=== PATIENT | female | born 1950 | race Caucasian/White ===

== ENCOUNTER → 2017-03-25 | Outpatient (CLI) | payer BC ==
[~2017-03-25] MED LIST: AMBIEN 10MG10 MG PO; ASPIRIN 81M81 MG/TA2 PO; BENICAR HCT 251 TAB PO; COSOPT 2%-0.5%10 ML OU; CRESTOR5 MG PO; GARLIC1000 MG PO; GOOD NEIGHBOR500 M6 PO; KLOR-CON 1010 MEQ PO; L-LYSINE500 M1 PO; LASIX 20MG TABL20 MG PO; LEXAPRO 10MG10 MG PO; LOPRESSOR100 MG PO; MOBIC 7.5MG7.5 MG PO; MULTIPLE VITAMI1 CAP PO; NATURAL E400 IU PO; NIACIN100 M1 PO; NORVASC 5MG5 MG/TAB PO; OMEGA 31000 MG PO; SYNTHROID0.125 MG/T PO; TRAVATAN Z 2.52.5 ML OU
== END ==
LOC: MC.RAD 08:40
DX: Z12.31 Encounter for screening mammogram for malignant neoplasm of breast (principal)

== ENCOUNTER → 2018-04-11 | Outpatient (CLI) | payer MEDICARE, BC | LOC: MC.RAD 09:36 | DX: Z12.31 Encounter for screening mammogram for malignant neoplasm of breast (principal); Z85.6 Personal history of leukemia ==

== ENCOUNTER → 2020-01-02 | Outpatient (CLI) | payer MEDICARE, BC | LOC: ZCOL.LAB 16:17 | DX: U07.1 COVID-19 (principal) ==

== ENCOUNTER → 2020-02-01 | Outpatient (CLI) | payer MEDICARE, BC | LOC: COL.RAD 09:35 | DX: Z01.812 Encounter for preprocedural laboratory examination (principal); R50.9 Fever, unspecified; Z85.6 Personal history of leukemia | CPT/HCPCS: Q9967 ==

== ENCOUNTER → 2020-02-07 | Emergency (ER) | payer MEDICARE, BC ==
[~2020-02-07] VITALS: Ht 167.6 cm; Wt 83.2 kg
[2020-02-07 15:11] VITALS: BP 109/58; PULSE 86; TEMP 98.2
[2020-02-07 16:01] LABS: MEAN CELL VOLUME 91 fl (80.0-100.0); MEAN CORPUSCULAR HGB CONC 31 g/dl (33.0-37.0); MEAN PLATELET VOLUME 11.7 fl (7.4-10.4); PLATELET COUNT 59 K/mm3 (130-400); RED BLOOD COUNT 2.77 M/mm3 (4.10-5.30); REDCELL DISTRIBUTION WIDTH-CV 15.9 % (11.5-14.5)
[2020-02-07 16:03] LABS: HEMATOCRIT 25.3 % (37.0-47.0); HEMOGLOBIN 7.9 g/dl (12.5-16.0); MEAN CORPUSCULAR HEMOGLOBIN 29 pg (27.0-31.0)
[2020-02-07 16:19] LABS: ALBUMIN 3.7 gm/dL (3.5-5.0); BILIRUBIN,TOTAL 0.8 mg/dL (0.0-1.0); CREATININE, serum 0.81 (0.52-1.25); POTASSIUM 4.3 mmol/L (3.4-5.0); TOTAL PROTEIN 6.9 gm/dL (6.4-8.2)
[2020-02-07 16:21] LABS: ERYTHROCYTE SEDIMENTATION RATE > 140 mm/hr (0-30)
[2020-02-07 16:26] LABS: BAND 2 % (0-10); LYMPHOCYTE 6 % (20.0-51.0); METAMYELOCYTE 1 % (0-0); MYELOCYTE 1 % (0-0); NEUTROPHILS 85 % (42.0-75.2)
[2020-02-07 16:27] LABS: ANISOCYTOSIS 2+; HYPOCHROMIA 3+; PLATELET ESTIMATE DECREASED (NORMAL)
[2020-02-07 16:32] LABS: C-REACTIVE PROTEIN 24.9 mg/dL (0.0-0.9)
== END ==
LOC: COL.ER 15:06
PROVIDERS: Family Medicine
DX: J18.9 Pneumonia, unspecified organism (principal); I10 Essential (primary) hypertension; Z79.890 Hormone replacement therapy; Z79.82 Long term (current) use of aspirin
CPT/HCPCS: J7120; Q9967

== ENCOUNTER 2020-02-08 14:08 | Outpatient (CLI) | payer MEDICARE, BC ==
[~2020-02-08] VITALS: Ht 167.6 cm; Wt 89.6 kg
[2020-02-08 14:15] VITALS: BP 121/62; PULSE 78; TEMP 97.2
[2020-02-08 16:30] VITALS: BP 122/79; PULSE 87; TEMP 97.4
[2020-02-08 16:45] VITALS: BP 120/60; PULSE 85; TEMP 97.2
[2020-02-08 17:00] VITALS: BP 124/70; PULSE 92; TEMP 97.2
[2020-02-08 17:15] VITALS: BP 125/73; PULSE 84; TEMP 97.2
[2020-02-08 17:45] VITALS: BP 128/65; PULSE 83; TEMP 97.2
== END 2020-02-08 18:20 | disposition home or self-care (01) ==
LOC: EUO 14:08
DX: C91.10 Chronic lymphocytic leukemia of B-cell type not having achieved remission (principal); D50.9 Iron deficiency anemia, unspecified
CPT/HCPCS: J7050; P9016

== ENCOUNTER 2020-03-05 13:15 | Outpatient (RCR) | payer MEDICARE, BC ==
[2020-03-05] VITALS (11 sets, daily range): BP systolic 96–113; BP diastolic 47–58; PULSE 66–75; TEMP 98.1–98.9
[2020-03-05] MEDS ORDERED: ULTRAM 50MG TAB50 MG PO ×2 (14:28)
[2020-03-05] MEDS ORDERED: CELEBREX 1100 MG/CAP PO (14:30)
== END 2020-03-05 17:58 | disposition home or self-care (01) ==
LOC: EUO 13:15
DX: C91.10 Chronic lymphocytic leukemia of B-cell type not having achieved remission (principal); D64.9 Anemia, unspecified
CPT/HCPCS: J7050; P9040

== ENCOUNTER 2020-03-30 13:00 | Outpatient (RCR) | payer MEDICARE, BC ==
[~2020-03-30] VITALS: Ht 167.6 cm; Wt 78.0 kg
[~2020-03-30 13:00] MED LIST changes: +CELEBREX 1100 MG/CAP PO; +ULTRAM 50MG TAB50 MG PO
[2020-03-30 13:43] VITALS: BP 97/42; PULSE 73
--- NOTE | 2020-03-30 16:22 | NUR ---
LAB IS HAVING DIFFICULTY WITH CROSSMATCHING BLOOD TO BE GIVEN. SHE HAS BEEN HERE SINCE A LITTLE AFTER 1300 AND WISHES TO GO HOME. LAB WAS IN AND ULYSSES MORE BLOOD FOR FURTHER TESTING. IV HAS BEEN DCD AND SHE WAS DISCHARGED VIA WHEELCHAIR. I HAVE LEFT A MESSAGE WITH DR. TABOR THAT SHE DID NOT RECEIVE THE TRANSFUSIONS. WE WILL NOTIFY PATIENT OF OUR FINDINGS FROM FURTHER TESTING OF THE UNIT
[2020-04-01] VITALS (8 sets, daily range): BP systolic 104–142; BP diastolic 53–77; PULSE 63–75; TEMP 98–98.9
== END 2020-04-01 19:32 | disposition home or self-care (01) ==
LOC: EUO 13:00 → MEDICAL 13:35 → EUO 04-01 19:32
DX: C91.10 Chronic lymphocytic leukemia of B-cell type not having achieved remission (principal); D64.9 Anemia, unspecified
CPT/HCPCS: J7050; P9040

== ENCOUNTER → 2020-05-08 | Outpatient (CLI) | payer MEDICARE, BC | LOC: MC.RAD 09:34 | DX: Z12.31 Encounter for screening mammogram for malignant neoplasm of breast (principal) ==

== ENCOUNTER → 2021-05-12 | Outpatient (CLI) | payer MEDICARE, BC | LOC: MC.RAD 09:45 | DX: Z12.31 Encounter for screening mammogram for malignant neoplasm of breast (principal) ==

== ENCOUNTER → 2023-06-30 | Outpatient (CLI) | payer MEDICARE, BC | LOC: COL.VAS 07:58 | DX: I51.7 Cardiomegaly (principal); I34.0 Nonrheumatic mitral (valve) insufficiency; I36.1 Nonrheumatic tricuspid (valve) insufficiency ==